=== PATIENT | male | born 1945 | race Caucasian/White ===

== ENCOUNTER 2018-03-02 16:22 | Emergency (ER) | payer OTHER, MEDICARE ==
[2018-03-02 16:29] VITALS: BP 162/82; PULSE 79; RESP 16; TEMP 99.3; O2SAT 96
[2018-03-02] MEDS ORDERED: SODIUM CHLOR 0.9% 1000 ML INJ 1,000 ML IV SCH (16:42)
--- NOTE | 2018-03-02 16:44 | PD ---
HPI Chief Complaint: Flank/Kidney Pain Time Seen by Provider: 16:35 Travel History International Travel<30 days: No Contact w/Intl Traveler<30days: No Traveled to known affect area: No History of Present Illness HPI 72-year-old male with history of hypertension presents emergency department for evaluation of possible kidney stone. Patient had acute onset left-sided flank pain. It has persisted throughout the day. He states it temporarily alleviates after voiding, but comes back and is sharp and stabbing. It is a constant ache otherwise. She denies any nausea or vomiting. No fever chills. It does not radiate anywhere. Patient has had multiple kidney stones in the past and believes this may be not. He denies any hematuria. No difficulty urinating. He has had no change in bowel movements. He has no other symptoms to report at this time. [facility] Past Medical History Hypertension: Yes Social History Tobacco Use: No Allergies-Medications (Allergen,Severity, Reaction): Coded Allergies: No Known Allergies (Unverified , 03/02/18) Reported Meds & Prescriptions Reported Meds & Active Scripts Active Percocet (Oxycodone-Acetaminophen) 5-325 mg Tab 1 Tab PO Q6H PRN Flomax (Tamsulosin HCl) 0.4 Mg Cap 0.4 Mg PO HS Reported Aspirin 81 Mg Chew 81 Mg CHEW DAILY Hydrochlorothiazide 50 Mg Tab 50 Mg PO DAILY Lisinopril 10 Mg Tab 10 Mg PO DAILY Review of Systems Except as stated in HPI: all other systems reviewed are Neg Physical Exam Narrative GENERAL: Well-nourished male patient, no acute distress SKIN: Focused skin assessment warm/dry. HEAD: Atraumatic. Normocephalic. EYES: Pupils equal and round. No scleral icterus. No injection or drainage. ENT: No nasal bleeding or discharge. Mucous membranes pink and moist. NECK: Trachea midline. No JVD. CARDIOVASCULAR: Regular rate and rhythm. No murmur appreciated. RESPIRATORY: No accessory muscle use. Diminished to auscultation, likely due to girth. Breath sounds equal bilaterally. GASTROINTESTINAL: Abdomen rotund, soft, nontender. Hepatic and splenic margins not palpable. MUSCULOSKELETAL: No obvious deformities. No clubbing. No cyanosis. No edema. No CVA tenderness. NEUROLOGICAL: Awake and alert. No obvious cranial nerve deficits. Motor grossly within normal limits. Normal speech. PSYCHIATRIC: Appropriate mood and affect; insight and judgment normal. Data Data Last Documented VS Vital Signs Date Time Temp Pulse Resp B/P (MAP) Pulse Ox O2 Delivery O2 Flow Rate FiO2 03/02/18 21:03 03/02/18 19:07 70 12 96 Room Air 03/02/18 16:29 99.3 Orders Orders Basic Metabolic Panel (Bmp) (03/02/18 16:42) Complete Blood Count With Diff (03/02/18 16:42) Urinalysis - C+S If Indicated (03/02/18 16:42) Ct Abd/Pel W/O Iv Contrast (03/02/18 16:42) Iv Access Insert/Monitor (03/02/18 16:42) Ecg Monitoring (03/02/18 16:42) Oximetry (03/02/18 16:42) Sodium Chlor 0.9% 1000 Ml Inj (Ns 1000 M (03/02/18 16:42) Sodium Chloride 0.9% Flush (Ns Flush) (03/02/18 16:45) Electrocardiogram (03/02/18 ) Ckmb (Isoenzyme) Profile (03/02/18 16:45) Troponin I (03/02/18 16:45) CKMB (03/02/18 16:45) CKMB% (03/02/18 16:45) Ceftriaxone Inj (Rocephin Inj) (03/02/18 18:00) Cath For Specimen (03/02/18 18:03) Ketorolac Inj (Toradol Inj) (03/02/18 18:45) Sodium Chlor 0.9% 1000 Ml Inj (Ns 1000 M (03/02/18 19:15) Ed Discharge Order (03/02/18 20:15) Electrocardiogram (03/02/18 19:29) Labs Laboratory Tests Test 03/02/18 16:45 03/02/18 19:48 White Blood Count 12.8 TH/MM3 Red Blood Count 5.64 MIL/MM3 Hemoglobin 17.0 GM/DL Hematocrit 50.5 % Mean Corpuscular Volume 89.4 FL Mean Corpuscular Hemoglobin 30.1 PG Mean Corpuscular Hemoglobin Concent 33.7 % Red Cell Distribution Width 14.3 % Platelet Count 274 TH/MM3 Mean Platelet Volume 6.8 FL Neutrophils (%) (Auto) 78.4 % Lymphocytes (%) (Auto) 12.1 % Monocytes (%) (Auto) 7.1 % Eosinophils (%) (Auto) 1.6 % Basophils (%) (Auto) 0.8 % Neutrophils # (Auto) 10.0 TH/MM3 Lymphocytes # (Auto) 1.6 TH/MM3 Monocytes # (Auto) 0.9 TH/MM3 Eosinophils # (Auto) 0.2 TH/MM3 Basophils # (Auto) 0.1 TH/MM3 CBC Comment DIFF FINAL Differential Comment Blood Urea Nitrogen 23 MG/DL Creatinine 1.75 MG/DL Random Glucose 124 MG/DL Calcium Level 9.7 MG/DL Sodium Level 138 MEQ/L Potassium Level 5.0 MEQ/L Chloride Level 104 MEQ/L Carbon Dioxide Level 24.4 MEQ/L Anion Gap 10 MEQ/L Estimat Glomerular Filtration Rate 39 ML/MIN Total Creatine Kinase 110 U/L Creatine Kinase MB 0.6 NG/ML Troponin I LESS THAN 0.02 NG/ML Urine Color YELLOW Urine Turbidity CLEAR Urine pH 5.5 Urine Specific [place] 1.021 Urine Protein NEG mg/dL Urine Glucose (UA) NEG mg/dL Urine Ketones 10 mg/dL Urine Occult Blood MOD Urine Nitrite NEG Urine Bilirubin NEG Urine Urobilinogen LESS THAN 2.0 MG/DL Urine Leukocyte Esterase NEG Urine RBC 28 /hpf Urine WBC 3 /hpf Urine Squamous Epithelial Cells <1 /hpf Urine Mucus FEW /lpf Microscopic Urinalysis Comment CULT NOT INDICATED MDM Medical Decision Making Medical Screen Exam Complete: Yes Emergency Medical Condition: Yes Medical Record Reviewed: Yes Differential Diagnosis Renal calculi versus renal colic versus UTI versus muscle spasm Narrative Course 72-year-old male presents emergency department for evaluation of left-sided flank pain, acute onset today persisting throughout the day. Patient appears well and without distress. His vital signs are stable. CT imaging is ordered to evaluate for renal calculi. While the patient is waiting, nursing staff approaches me about patient having brief pauses in his EKG. He remains asymptomatic. He also reported some mild shortness of breath today but this is also resolved. I will add a troponin while we wait an EKG is complete without any acute abnormality identified. Laboratory Tests Test 03/02/18 16:45 03/02/18 19:48 White Blood Count 12.8 TH/MM3 Red Blood Count 5.64 MIL/MM3 Hemoglobin 17.0 GM/DL Hematocrit 50.5 % Mean Corpuscular Volume 89.4 FL Mean Corpuscular Hemoglobin 30.1 PG Mean Corpuscular Hemoglobin Concent 33.7 % Red Cell Distribution Width 14.3 % Platelet Count 274 TH/MM3 Mean Platelet Volume 6.8 FL Neutrophils (%) (Auto) 78.4 % Lymphocytes (%) (Auto) 12.1 % Monocytes (%) (Auto) 7.1 % Eosinophils (%) (Auto) 1.6 % Basophils (%) (Auto) 0.8 % Neutrophils # (Auto) 10.0 TH/MM3 Lymphocytes # (Auto) 1.6 TH/MM3 Monocytes # (Auto) 0.9 TH/MM3 Eosinophils # (Auto) 0.2 TH/MM3 Basophils # (Auto) 0.1 TH/MM3 CBC Comment DIFF FINAL Differential Comment Blood Urea Nitrogen 23 MG/DL Creatinine 1.75 MG/DL Random Glucose 124 MG/DL Calcium Level 9.7 MG/DL Sodium Level 138 MEQ/L Potassium Level 5.0 MEQ/L Chloride Level 104 MEQ/L Carbon Dioxide Level 24.4 MEQ/L Anion Gap 10 MEQ/L Estimat Glomerular Filtration Rate 39 ML/MIN Total Creatine Kinase 110 U/L Creatine Kinase MB 0.6 NG/ML Troponin I LESS THAN 0.02 NG/ML Urine Color YELLOW Urine Turbidity CLEAR Urine pH 5.5 Urine Specific [place] 1.021 Urine Protein NEG mg/dL Urine Glucose (UA) NEG mg/dL Urine Ketones 10 mg/dL Urine Occult Blood MOD Urine Nitrite NEG Urine Bilirubin NEG Urine Urobilinogen LESS THAN 2.0 MG/DL Urine Leukocyte Esterase NEG Urine RBC 28 /hpf Urine WBC 3 /hpf Urine Squamous Epithelial Cells <1 /hpf Urine Mucus FEW /lpf Microscopic Urinalysis Comment CULT NOT INDICATED Last Impressions Abdomen/Pelvis CT 03/02/18 1642 Signed Impressions: CONCLUSION: 1. 2 mm stone distal left ureter causing mild perinephric stranding around the left kidney. No other stones are identified. Findings are discussed with my attending physician. Patient will be provided pain control and Flomax. He is encouraged to follow-up with urology. He agrees to return immediately with acute worsening of symptoms. Diagnosis Primary Impression: Renal calculus, left Referrals: Primary Care Physician Patient Instructions: General Instructions, Kidney Stones (ED) Additional Instructions: Maintain adequate oral hydration Follow-up with a primary care provider Seek urology evaluation Return immediately with acute worsening of symptoms Med/Other Pt SpecificInfo: Prescription(s) given Scripts Oxycodone-Acetaminophen (Percocet) 5-325 mg Tab 1 TAB PO Q6H Y for PAIN, #15 TAB 0 Refills Prov: Christal Long 03/02/18 Tamsulosin (Flomax) 0.4 Mg Cap 0.4 MG PO HS for Manage Prostate Problems, #5 CAP 0 Refills Prov: Christal Long 03/02/18 Disposition: 01 DISCHARGE HOME Condition: Stable Christal Long Mar 02, 2018 16:44
[2018-03-02] MEDS ORDERED: SODIUM CHLORIDE 0.9% FLUSH 10 ML FLUSH IV FLUSH PRN (16:45)
[2018-03-02 16:47] VITALS: PULSE 60; RESP 16; O2SAT 95
[2018-03-02] MEDS ORDERED: ASPI-516 CHEW (16:55)
[2018-03-02] MEDS ORDERED: LISI10TA3 PO (16:55)
[2018-03-02] MEDS ORDERED: HYDR50TA3 PO (16:55)
[2018-03-02 17:15] LABS: BASOPHIL # 0.1 TH/MM3 (0-0.2); BASOPHIL % 0.8 % (0.0-2.0); EOSINOPHIL # 0.2 TH/MM3 (0-0.4); EOSINOPHIL % 1.6 % (0.0-4.0); HEMATOCRIT 50.5 % (39.0-51.0); LYMPH % 12.1 % (9.0-44.0); LYMPHOCYTE # 1.6 TH/MM3 (1.0-4.8); MEAN CELL VOLUME 89.4 FL (80.0-100.0); MEAN CORPUSCULAR HEMOGLOBIN 30.1 PG (27.0-34.0); MEAN CORPUSCULAR HGB CONC 33.7 % (32.0-36.0); MEAN PLATELET VOLUME 6.8 FL (7.0-11.0); MONO % 7.1 % (0.0-8.0); MONOCYTE # 0.9 TH/MM3 (0-0.9); NEUT % 78.4 % (16.0-70.0); PLATELET COUNT 274 TH/MM3 (150-450); RED BLOOD COUNT 5.64 MIL/MM3 (4.50-5.90); RED CELL DISTRIBUTION WIDTH 14.3 % (11.6-17.2); WHITE BLOOD COUNT 12.8 TH/MM3 (4.0-11.0)
--- NOTE | 2018-03-02 17:16 | RADRPT ---
EXAM DATE: 03/02/2018 5:12 PM EDT AGE/SEX: 72 years / Male INDICATIONS: Left flank pain. CLINICAL DATA: This is the patient's initial encounter. Patient reports that signs and symptoms have been present for 1 day and indicates a pain score of 5/10. MEDICAL/SURGICAL HISTORY: Hypertension. Renal calculi. None. RADIATION DOSE: 33.41 CTDI (mGy) ; Patient body habitus COMPARISON: No prior [place] exams available for comparison. TECHNIQUE: Multiple contiguous axial images were obtained through the abdomen. Images were obtained using multiple row detector helical technique. Using dose reduction techniques, radiation dose was ke pt as low as reasonably achievable to obtain optimal diagnostic quality images. FINDINGS: Lower Lungs: The visualized lower lungs are clear. Liver: The liver has a homogeneous density with a 1 cm hypodensity in the right lobe of the liver. Th ere is no dilation of the biliary tree. Spleen: Homogeneous density without enlargement. Pancreas: Unremarkable without mass or calcification. Kidneys: 2 mm stone in the distal left ureter without any definite hydronephrosis. There is some mil d perinephric stranding on the left. Adrenal Glands: Unremarkable. Aorta: The aorta and proximal iliac vessels are grossly unremarkable without aneurysmal dilation. Bowel/Mesentery: The bowel loops are grossly unremarkable. The cecum and sigmoid colon have a normal configuration. Abdominal Wall: Intact. Retroperitoneum: No evidence of adenopathy in the retrocrural, para-aortic, or deep pelvic regions. Bladder: Contours are smooth. Reproductive Organs: No abnormal masses or calcifications seen. Inguinal: The inguinal region is unremarkable without evidence of adenopathy. Bony Structures: Unremarkable. CONCLUSION: 1. 2 mm stone distal left ureter causing mild perinephric stranding around the left kidney. No other stones are identified. Electronically signed by: Simba Rogers MD 03/02/2018 5:15 PM EDT
[2018-03-02 17:38] LABS: BICARBONATE 24.4 MEQ/L (21.0-32.0); BLOOD UREA NITROGEN 23 MG/DL (7-18); CALCIUM 9.7 MG/DL (8.5-10.1); CHLORIDE 104 MEQ/L (98-107); CREATININE 1.75 MG/DL (0.60-1.30); GLOMERULAR FILTRATION RATE 39 ML/MIN (>89); GLUCOSE,RANDOM 124 MG/DL (74-106); SODIUM (NA) 138 MEQ/L (136-145)
[2018-03-02 17:42] LABS: TROPONIN I LESS THAN 0.02 NG/ML (0.02-0.05)
[2018-03-02] MEDS ORDERED: cefTRIAXone INJ 1,000 MG in SODIUM CHLORIDE 0.9% INJ 100 ML IV ONE (18:00)
--- NOTE | 2018-03-02 18:14 | PD ---
Physical Exam Date Seen by Provider: Mar 02, 2018 Data Data Last Documented VS Vital Signs Date Time Temp Pulse Resp B/P (MAP) Pulse Ox O2 Delivery O2 Flow Rate FiO2 03/02/18 16:47 60 16 95 Room Air 03/02/18 16:29 99.3 162/82 (108) Orders Orders Basic Metabolic Panel (Bmp) (03/02/18 16:42) Complete Blood Count With Diff (03/02/18 16:42) Urinalysis - C+S If Indicated (03/02/18 16:42) Ct Abd/Pel W/O Iv Contrast (03/02/18 16:42) Iv Access Insert/Monitor (03/02/18 16:42) Ecg Monitoring (03/02/18 16:42) Oximetry (03/02/18 16:42) Sodium Chlor 0.9% 1000 Ml Inj (Ns 1000 M (03/02/18 16:42) Sodium Chloride 0.9% Flush (Ns Flush) (03/02/18 16:45) Electrocardiogram (03/02/18 ) Ckmb (Isoenzyme) Profile (03/02/18 16:45) Troponin I (03/02/18 16:45) CKMB (03/02/18 16:45) CKMB% (03/02/18 16:45) Ceftriaxone Inj (Rocephin Inj) (03/02/18 18:00) Cath For Specimen (03/02/18 18:03) Labs Laboratory Tests Test 03/02/18 16:45 White Blood Count 12.8 TH/MM3 Red Blood Count 5.64 MIL/MM3 Hemoglobin 17.0 GM/DL Hematocrit 50.5 % Mean Corpuscular Volume 89.4 FL Mean Corpuscular Hemoglobin 30.1 PG Mean Corpuscular Hemoglobin Concent 33.7 % Red Cell Distribution Width 14.3 % Platelet Count 274 TH/MM3 Mean Platelet Volume 6.8 FL Neutrophils (%) (Auto) 78.4 % Lymphocytes (%) (Auto) 12.1 % Monocytes (%) (Auto) 7.1 % Eosinophils (%) (Auto) 1.6 % Basophils (%) (Auto) 0.8 % Neutrophils # (Auto) 10.0 TH/MM3 Lymphocytes # (Auto) 1.6 TH/MM3 Monocytes # (Auto) 0.9 TH/MM3 Eosinophils # (Auto) 0.2 TH/MM3 Basophils # (Auto) 0.1 TH/MM3 CBC Comment DIFF FINAL Differential Comment Blood Urea Nitrogen 23 MG/DL Creatinine 1.75 MG/DL Random Glucose 124 MG/DL Calcium Level 9.7 MG/DL Sodium Level 138 MEQ/L Potassium Level 5.0 MEQ/L Chloride Level 104 MEQ/L Carbon Dioxide Level 24.4 MEQ/L Anion Gap 10 MEQ/L Estimat Glomerular Filtration Rate 39 ML/MIN Total Creatine Kinase 110 U/L Creatine Kinase MB 0.6 NG/ML Troponin I LESS THAN 0.02 NG/ML [facility] Medical Record Reviewed: Yes Supervised Visit with OSWALDO: Yes Narrative Course I, Dr. Malik, have reviewed the advance practice practitioner's documentation and am in agreement, met with the patient face to face, made the diagnosis, and the medical decision making was done by me. *My assessment and Findings: Patient is a 72-year-old male who presents the emergency room for evaluation of left-sided flank pain which began around 3 AM this morning. Patient reports concern for possible kidney stone as he has had this in the past. Patient with no fever or chills, nausea or vomiting, no other complaints at this time. CBC & BMP Diagram 03/02/18 16:45 Calcium Level 9.7 Last Impressions Abdomen/Pelvis CT 03/02/18 1642 Signed Impressions: CONCLUSION: 1. 2 mm stone distal left ureter causing mild perinephric stranding around the left kidney. No other stones are identified. Patient with a 2 mm stone in distal left ureter with mild perinephric stranding , patient pending ua Victoria Malik DO Mar 02, 2018 18:14
[2018-03-02] MEDS ORDERED: KETOROLAC TROMETHAMINE 30 MG/ML (IVP) VIAL IV PUSH ONE (18:45)
[2018-03-02 19:07] VITALS: BP 181/86; PULSE 70; RESP 12; O2SAT 96
[2018-03-02] MEDS ORDERED: SODIUM CHLOR 0.9% 1000 ML INJ 1,000 ML IV ONE (19:15)
[2018-03-02 20:08] LABS: BILIRUBIN, URINE NEG (NEG); BLOOD, URINE MOD (NEG); GLUCOSE,URINE NEG (NEG); KETONE, URINE 10 mg/dL (NEG); MUCUS URINE FEW /lpf (OCC); NITRITE,URINE NEG (NEG); PH, URINE 5.5 (5.0-8.5); SQUAMOUS EPITHELIAL CELL URINE <1 /hpf (0-5); URINE COLOR YELLOW (YELLW/STRAW); URINE LEUKOCYTE ESTERASE NEG (NEG)
[2018-03-02] MEDS ORDERED: PERC5TAB12 PO (20:17)
[2018-03-02] MEDS ORDERED: TAMS5CAP PO (20:17)
--- NOTE | 2018-03-03 19:11 | EKG ---
Date Performed: 03/02/2018 Time Performed: 19:29:45 PTAGE: 72 years EKG: Sinus rhythm WITH OCCASIONAL SUPRAVENTRICULAR PREMATURE COMPLEXES LOW QRS VOLTAGE IN PRECORDIAL LEADS BORDERLINE ECG PREVIOUS TRACING : 03/02/2018 16.14 Since the previous tracing, no significant change noted DOCTOR: David Whitley Interpretating Date/Time 03/03/2018 19:10:28
--- NOTE | 2018-03-03 19:17 | EKG ---
Date Performed: 03/02/2018 Time Performed: 16:14:24 PTAGE: 72 years EKG: Sinus rhythm POSSIBLE LEFT ATRIAL ENLARGEMENT BORDERLINE ECG NO PREVIOUS TRACING DOCTOR: David Whitley Interpretating Date/Time 03/03/2018 19:15:13
== END 2018-03-02 21:04 | disposition home or self-care (01) ==
LOC: NEPC 16:22
DX: N20.2 Calculus of kidney with calculus of ureter (principal); R94.31 Abnormal electrocardiogram [ECG] [EKG]; I10 Essential (primary) hypertension; Z87.442 Personal history of urinary calculi; Z79.899 Other long term (current) drug therapy
CPT/HCPCS: 74176; 80048; 81001; 82550; 82552; 84484; 85025; 93005; 96365; 96375; 99285; J0696; J1885; J7030; P9612